=== PATIENT | male | born 1945 ===

== ENCOUNTER → 2016-03-18 12:20 | Outpatient (CLI) | payer MEDICARE ==
[2016-03-18 15:53] LABS: BASOPHILS 0.5 % (0.0-2.0); EOSINOPHILS 7.2 % (0-7); HEMATOCRIT 42.4 % (42.0-54.0); HEMOGLOBIN 14.2 g/dL (13.5-17.5); IMMATURE GRANULOCYTES 0.2 % (0-5); LYMPHOCYTES 21.4 % (15-50); MCH 33.5 pg (26.0-34.0); MCHC 33.5 g/dL (31.0-37.0); MEAN PLATELET VOLUME 11.8 fL (7.4-10.4); MONOCYTES 10.5 % (2-11); NEUTROPHILS 60.2 % (40-80); PLATELET COUNT 101 10x3/uL (130-400); RBC 4.24 10x6/uL (4.20-6.10); RDW 13.1 % (11.5-14.5); WBC 5.8 10x3/uL (4.8-10.8)
[2016-03-18 16:08] LABS: ALBUMIN 3.7 g/dL (3.4-5.0); BILIRUBIN - TOTAL 0.52 mg/dL (0.2-1.3); CALCIUM 8.8 mg/dL (8.5-10.1); CARBON DIOXIDE 30.7 mmol/L (21.0-32.0); CREATININE - SERUM 1.2 mg/dL (0.6-1.3); POTASSIUM - SERUM 4.7 mmol/L (3.5-5.1); PROTEIN - SERUM 6.4 g/dL (6.4-8.2)
== END | disposition home or self-care (01) ==
LOC: D.LABREF 12:20
PROVIDERS: Student in an Organized Health Care Education/Training Program
DX: Z51.81 Encounter for therapeutic drug level monitoring (principal); Z79.2 Long term (current) use of antibiotics; A31.0 Pulmonary mycobacterial infection

== ENCOUNTER → 2016-05-09 14:17 | Outpatient (CLI) | payer MEDICARE ==
[2016-05-09 14:43] LABS: BASOPHILS 0.6 % (0.0-2.0); EOSINOPHILS 9.1 % (0-7); HEMATOCRIT 40.6 % (42.0-54.0); HEMOGLOBIN 13.7 g/dL (13.5-17.5); IMMATURE GRANULOCYTES 0.3 % (0-5); LYMPHOCYTES 26.7 % (15-50); MCH 33.7 pg (26.0-34.0); MCHC 33.7 g/dL (31.0-37.0); MEAN PLATELET VOLUME 11.6 fL (7.4-10.4); MONOCYTES 11.8 % (2-11); NEUTROPHILS 51.5 % (40-80); PLATELET COUNT 125 10x3/uL (130-400); RBC 4.06 10x6/uL (4.20-6.10); RDW 13.5 % (11.5-14.5); WBC 6.4 10x3/uL (4.8-10.8)
[2016-05-09 15:05] LABS: ALBUMIN 3.7 g/dL (3.4-5.0); ANION GAP 12.8 mmol/L (8-16); BILIRUBIN - TOTAL 0.5 mg/dL (0.2-1.3); CALCIUM 8.5 mg/dL (8.5-10.1); CARBON DIOXIDE 27.3 mmol/L (21.0-32.0); CREATININE - SERUM 1.4 mg/dL (0.6-1.3); POTASSIUM - SERUM 5.1 mmol/L (3.5-5.1); PROTEIN - SERUM 6.4 g/dL (6.4-8.2)
== END | disposition home or self-care (01) ==
LOC: D.LABREF 14:17
PROVIDERS: Student in an Organized Health Care Education/Training Program
DX: A31.0 Pulmonary mycobacterial infection (principal); D69.59 Other secondary thrombocytopenia

== ENCOUNTER → 2016-06-27 10:11 | Outpatient (CLI) | payer MEDICARE ==
[2016-06-27 14:13] LABS: BASOPHILS 0.9 % (0.0-2.0); EOSINOPHILS 5.2 % (0-7); HEMATOCRIT 40.3 % (42.0-54.0); HEMOGLOBIN 13.4 g/dL (13.5-17.5); IMMATURE GRANULOCYTES 0.4 % (0-5); LYMPHOCYTES 20.9 % (15-50); MCH 33.3 pg (26.0-34.0); MCHC 33.3 g/dL (31.0-37.0); MONOCYTES 8.7 % (2-11); NEUTROPHILS 63.9 % (40-80); PLATELET COUNT 127 10x3/uL (130-400); RBC 4.03 10x6/uL (4.20-6.10); RDW 14.2 % (11.5-14.5); WBC 5.6 10x3/uL (4.8-10.8)
[2016-06-27 14:20] LABS: ALBUMIN 3.4 g/dL (3.4-5.0); ANION GAP 12.7 mmol/L (8-16); BILIRUBIN - TOTAL 0.38 mg/dL (0.2-1.3); CALCIUM 8.2 mg/dL (8.5-10.1); CARBON DIOXIDE 29.8 mmol/L (21.0-32.0); CREATININE - SERUM 1.2 mg/dL (0.6-1.3); POTASSIUM - SERUM 4.5 mmol/L (3.5-5.1); PROTEIN - SERUM 6.4 g/dL (6.4-8.2)
== END | disposition home or self-care (01) ==
LOC: D.LABREF 10:11
PROVIDERS: Student in an Organized Health Care Education/Training Program
DX: A31.0 Pulmonary mycobacterial infection (principal); D69.59 Other secondary thrombocytopenia; Z79.2 Long term (current) use of antibiotics

== ENCOUNTER → 2016-08-08 10:50 | Outpatient (CLI) | payer MEDICARE ==
[2016-08-08 14:29] LABS: BASOPHILS 1.3 % (0-2); EOSINOPHILS 6.7 % (0-7); HEMATOCRIT 39.5 % (42.0-54.0); HEMOGLOBIN 12.9 g/dL (13.5-17.5); IMMATURE GRANULOCYTES 0.6 % (0-5); LYMPHOCYTES 22.1 % (15-50); MCH 33.6 pg (26.0-34.0); MCHC 32.7 g/dL (31.0-37.0); MCV 102.9 fL (80.0-100.0); MEAN PLATELET VOLUME 10.8 fL (7.4-10.4); MONOCYTES 9.7 % (2-11); NEUTROPHILS 59.6 % (40-80); PLATELET COUNT 133 10x3/uL (130-400); RBC 3.84 10x6/uL (4.20-6.10); RDW 13.9 % (11.5-14.5); WBC 4.8 10x3/uL (4.8-10.8)
[2016-08-08 14:43] LABS: ALBUMIN 3.5 g/dL (3.4-5.0); ANION GAP 10.8 mmol/L (8-16); BILIRUBIN - TOTAL 0.4 mg/dL (0.2-1.3); CALCIUM 8.5 mg/dL (8.5-10.1); CARBON DIOXIDE 28.9 mmol/L (21.0-32.0); CREATININE - SERUM 1.2 mg/dL (0.6-1.3); POTASSIUM - SERUM 4.7 mmol/L (3.5-5.1); PROTEIN - SERUM 6.7 g/dL (6.4-8.2)
== END | disposition home or self-care (01) ==
LOC: D.LABREF 10:50
PROVIDERS: Student in an Organized Health Care Education/Training Program
DX: Z51.81 Encounter for therapeutic drug level monitoring (principal); Z79.2 Long term (current) use of antibiotics; A31.0 Pulmonary mycobacterial infection; D69.6 Thrombocytopenia, unspecified

== ENCOUNTER → 2016-09-26 12:30 | Outpatient (CLI) | payer MEDICARE | END | disposition home or self-care (01) | LOC: D.LABREF 12:30 | DX: A31.0 Pulmonary mycobacterial infection (principal); Z79.2 Long term (current) use of antibiotics ==